=== PATIENT | female | born 1955 | race Caucasian/White ===

== ENCOUNTER 2018-09-16 15:09 | Inpatient (IN) | payer OTHER ==
[2018-09-16] MEDS ORDERED: NACL 0.9% 500 ML 500 ML IV SCH (15:37)
[2018-09-16] MEDS ORDERED: TYLENOL PO PRN (16:21)
[2018-09-16] MEDS ORDERED: SODIUM CHLORIDE FLUSH SYRINGE 10 ML IV PRN (16:21)
[2018-09-16] MEDS ORDERED: DILAUDID IV PRN (16:21)
[2018-09-16] MEDS ORDERED: AMBIEN PO PRN (16:21)
[2018-09-16] MEDS ORDERED: ZOFRAN IV PRN (16:21)
[2018-09-16 17:00] LABS: Basophils % (Auto) 0.7 % (0.0-1.8); Eosinophils % (Auto) 0.4 % (0.0-4.3); Hematocrit 21.8 % (30.3-42.9); Hemoglobin 6.3 gm/dl (10.1-14.3); Lymphocytes # (Auto) 1.7 K/mm3 (1.2-5.4); Lymphocytes % (Auto) 26.2 % (13.4-35.0); Mean Corpuscular HGB Conc 29 % (30-34); Mean Corpuscular Volume 74 fl (79-97); Monocytes # (Auto) 0.4 K/mm3 (0.0-0.8); Monocytes % (Auto) 5.8 % (0.0-7.3); Platelet Count 385 K/mm3 (140-440); Red Blood Count 2.95 M/mm3 (3.65-5.03); Red Cell Distribution Width 20.8 % (13.2-15.2)
[2018-09-16] MEDS ORDERED: D5NS 1,000 ML IV SCH (17:00)
[2018-09-16 17:23] LABS: Alanine Aminotransferase 13 units/L (7-56); Albumin 3.7 g/dL (3.9-5); BUN/Creatinine Ratio 21; Blood Urea Nitrogen 15 mg/dL (7-17); Calcium 9.5 mg/dL (8.4-10.2); Hemolysis Index 0
[2018-09-16] MEDS ORDERED: RANITIDINE HCL 300 MG PO SCH (21:15)
[2018-09-16] MEDS: SODIUM CHLORIDE FLUSH SYRINGE 10 ML IV SCH (21:16)
[2018-09-16] MEDS ORDERED: PEPCID IV SCH (22:00)
[2018-09-16] MEDS: PROTONIX IV SCH (22:24)
[2018-09-16] MEDS: APRESOLINE IV PRN (22:44)
[2018-09-17] MEDS: APRESOLINE IV PRN (04:35)
--- NOTE | 2018-09-17 07:04 | History and Physical Report ---
History of Present Illness Date of examination: 09/16/18 Date of admission: 09/16/18 15:45 Chief complaint: Low H/h--sent from Dr Samuels's office History of present illness: 63 y/o female sent from Dr Sims office for direct admit.Patient was found to have low hemoglobin of 6.2. No Hematemesis or Melena recently. No Menorrhagia Patient has been taking Diclofenac for OA.Easy fatigability and SOB on exertion.Also Lightheaded. Past History Past Medical History: arthritis, hypertension Past Surgical History: No surgical history Social history: no significant social history, lives with family Family history: hypertension Medications and Allergies Allergies Allergy/AdvReac Type Severity Reaction Status Date / Time No Known Allergies Allergy Verified 09/16/18 15:13 Home Medications Medication Instructions Recorded Confirmed Last Taken Type Metoprolol 100 mg PO DAILY 09/16/18 09/16/18 09/15/18 08:00 History Ranitidine HCl 300 mg PO DAILY 09/16/18 09/16/18 09/16/18 17:00 History Active Meds: Active Medications Acetaminophen (Tylenol) 650 mg PO Q4H PRN PRN Reason: Pain MILD(1-3)/Fever >100.5/YAN Hydralazine HCl (Apresoline) 10 mg IV Q4H PRN PRN Reason: Blood Pressure Last Admin: 09/17/18 04:35 Dose: 10 mg Documented by: Hydromorphone HCl (Dilaudid) 0.5 mg IV Q3H PRN PRN Reason: Pain , Severe (7-10) Dextrose/Sodium Chloride (D5ns) 1,000 mls @ 42 mls/hr IV DIRECT [facility] Last Admin: 09/16/18 21:16 Dose: 42 mls/hr Documented by: Ondansetron HCl (Zofran) 4 mg IV Q8H PRN PRN Reason: Nausea And Vomiting Pantoprazole Sodium (Protonix) 40 mg IV BID [facility] Last Admin: 09/16/18 22:24 Dose: Not Given Documented by: Sodium Chloride (Sodium Chloride Flush Syringe 10 Ml) 10 ml IV BID [facility] Last Admin: 09/16/18 21:16 Dose: 10 ml Documented by: Sodium Chloride (Sodium Chloride Flush Syringe 10 Ml) 10 ml IV PRN PRN PRN Reason: LINE FLUSH Zolpidem Tartrate (Ambien) 5 mg PO QHS PRN PRN Reason: Insomnia Review of Systems All systems: negative Constitutional: no weight loss, no weight gain, no fever, no chills Ears, nose, mouth and throat: no ear pain, no ear discharge, no tinnitis, no decreased hearing Breasts: deferred Cardiovascular: lightheadedness, shortness of breath, dyspnea on exertion Respiratory: dyspnea on exertion, no cough, no cough with sputum, no excessive sputum, no hemoptysis, no shortness of breath Gastrointestinal: no abdominal pain, no nausea, no vomiting, no diarrhea Genitourinary Female: no dyspareunia, no dysmenorrhea, no pelvic pain, no flank pain, no menorrhagia, no dysuria, no urinary frequency, no urgency, no stress incontinence, no post void dribbling, no incomplete emptying, no urge incontinence, no mixed incontinence, no difficulty voiding, no hematuria Menstruation: ammenorrhea Rectal: no pain, no bleeding Musculoskeletal: redness of joints, no neck stiffness, no neck pain, no shooting arm pain, no arm numbness/tingling Integumentary: no rash, no pruritis, no redness, no sores, no wounds Neurological: no head injury, no transient paralysis, no paralysis, no weakness, no parathesias Psychiatric: no anxiety, no memory loss, no change in sleep habits, no sleep disturbances Endocrine: no cold intolerance, no heat intolerance, no polyphagia, no excessive thirst Hematologic/Lymphatic: no easy bruising, no easy bleeding Allergic/Immunologic: no urticaria, no allergic rhinitis, no wheezing Exam - Constitutional Vitals: Temp Pulse Resp BP Pulse Ox 98 F 71 17 153/64 100 09/17/18 06:45 09/17/18 06:45 09/17/18 06:45 09/17/18 06:45 09/17/18 06:45 General appearance: Present: no acute distress, well-nourished - EENT Eyes: Present: PERRL ENT: hearing intact, clear oral mucosa - Neck Neck: Present: supple, normal ROM - Respiratory Respiratory effort: normal Respiratory: bilateral: CTA - Cardiovascular Heart rate: 78 Rhythm: regular Heart Sounds: Present: S1 & S2. Absent: rub, click - Extremities Extremities: no ischemia, pulses intact, pulses symmetrical, No edema Peripheral Pulses: within normal limits - Abdominal General gastrointestinal: Present: soft, non-tender, non-distended, normal bowel sounds Female genitourinary: Present: normal - Integumentary Integumentary: Present: clear, warm, dry - Musculoskeletal Musculoskeletal: gait normal, strength equal bilaterally - Psychiatric Psychiatric: appropriate mood/affect, intact judgment & insight - Neurologic Neurologic: CNII-XII intact, moves all extremities Results - Labs CBC & Chem 7: 09/16/18 16:31 09/16/18 16:31 Labs: Laboratory Last Values WBC 6.6 K/mm3 (4.5-11.0) 09/16/18 16:31 RBC 2.95 M/mm3 (3.65-5.03) L 09/16/18 16:31 Hgb 6.3 gm/dl (10.1-14.3) L 09/16/18 16:31 Hct 21.8 % (30.3-42.9) L 09/16/18 16:31 MCV 74 fl (79-97) L 09/16/18 16:31 MCH 22 pg (28-32) L 09/16/18 16:31 MCHC 29 % (30-34) L 09/16/18 16:31 RDW 20.8 % (13.2-15.2) H 09/16/18 16:31 Plt Count 385 K/mm3 (140-440) 09/16/18 16:31 Lymph % (Auto) 26.2 % (13.4-35.0) 09/16/18 16:31 Pine % (Auto) 5.8 % (0.0-7.3) 09/16/18 16:31 Eos % (Auto) 0.4 % (0.0-4.3) 09/16/18 16:31 Baso % (Auto) 0.7 % (0.0-1.8) 09/16/18 16:31 Lymph # 1.7 K/mm3 (1.2-5.4) 09/16/18 16:31 Pine # 0.4 K/mm3 (0.0-0.8) 09/16/18 16:31 Eos # 0.0 K/mm3 (0.0-0.4) 09/16/18 16:31 Baso # 0.0 K/mm3 (0.0-0.1) 09/16/18 16:31 Seg Neutrophils % 66.9 % (40.0-70.0) 09/16/18 16:31 Seg Neutrophils # 4.4 K/mm3 (1.8-7.7) 09/16/18 16:31 Sodium 140 mmol/L (137-145) 09/16/18 16:31 Potassium 4.7 mmol/L (3.6-5.0) 09/16/18 16:31 Chloride 104.2 mmol/L (98-107) 09/16/18 16:31 Carbon Dioxide 24 mmol/L (22-30) 09/16/18 16:31 17 mmol/L 09/16/18 16:31 BUN 15 mg/dL (7-17) 09/16/18 16:31 0.7 mg/dL (0.7-1.2) 09/16/18 16:31 Estimated GFR > 60 ml/min 09/16/18 16:31 21 % 09/16/18 16:31 Glucose 101 mg/dL (65-100) H 09/16/18 16:31 6.0 % (4-6) 09/16/18 16:39 Calcium 9.5 mg/dL (8.4-10.2) 09/16/18 16:31 0.20 mg/dL (0.1-1.2) 09/16/18 16:31 AST 18 units/L (5-40) 09/16/18 16:31 ALT 13 units/L (7-56) 09/16/18 16:31 80 units/L (35-129) 09/16/18 16:31 7.3 g/dL (6.3-8.2) 09/16/18 16:31 3.7 g/dL (3.9-5) L 09/16/18 16:31 1.0 % 09/16/18 16:31 Blood Type O POSITIVE 09/16/18 16:31 Antibody Screen Negative 09/16/18 16:31 Crossmatch See Detail 09/16/18 16:31 Assessment and Plan Advance Directives: Yes (Full code) VTE prophylaxis?: Mechanical Plan of care discussed with patient/family: Yes - Patient Problems (1) Symptomatic anemia Current Visit: Yes Status: Acute Plan to address problem: R/o upper GI bleed sec to NSAIDS patient on Dicofenac for OA (2) HTN (hypertension) Current Visit: Yes Status: Chronic Qualifiers: Hypertension type: essential hypertension Qualified Code(s): I10 - Essential (primary) hypertension Plan to address problem: Cont antihypertensives (3) GERD (gastroesophageal reflux disease) Current Visit: Yes Status: Chronic Qualifiers: Esophagitis presence: with esophagitis Qualified Code(s): K21.0 - Gastro- esophageal reflux disease with esophagitis Plan to address problem: On PPis (4) DVT prophylaxis Current Visit: Yes Status: Acute Plan to address problem: On SCDs and GI prophylaxis
--- NOTE | 2018-09-17 09:49 | Gastroenterology Consultation ---
<BAMBI EL - Last Filed: 09/17/18 10:02> History of Present Illness - Reason for Consult Consult date: 09/17/18 anemia, GI bleed Requesting physician: DENYS MCKEON - History of Present Illness Patient is a 63 y/o female with PMH of arthritis and HTN who was sent to ED for evaluation of low hemoglobin. GI has been consulted for anemia/GI bleed?. This morning patient was resting in bed w/o acute distress with family at bedside who assisted with translating/obtaining history. Patient reports intermittent epigastric pain x ~3 months that is exacerbated with certain foods (spicy, greasy, etc.). No active signs of bleeding such as hematemesis, melena, or hematochezia. Denies fever, wt loss, CP, SOB, N/V, dysphagia, odynophagia, diarr hea, or constipation. No prior hx of anemia or GI bleeding. Had a colonoscopy within the last year while in [place] with negative results per pt/family report. No previous EGD or hx of PUD, but admits to heavy NSAID use at home along with taking Diclofenac for knee pain 2/2 arthritis. States she was placed on a short trial of PPI by PCP for epigastric pain with improvement in pain at that time, but is no longer taking medication. No known Fhx of GI cancer. Past History Past Medical History: arthritis, hypertension Past Surgical History: No surgical history Social history: no significant social history, lives with family Family history: hypertension Medications and Allergies Allergies Allergy/AdvReac Type Severity Reaction Status Date / Time No Known Allergies Allergy Verified 09/16/18 15:13 Home Medications Medication Instructions Recorded Confirmed Last Taken Type Metoprolol 100 mg PO DAILY 09/16/18 09/16/18 09/15/18 08:00 History Pantoprazole [Protonix] 40 mg PO BID #60 tablet 09/17/18 Unknown Rx Sucralfate [Carafate] 1 gm PO ACHS 30 Days oral.liqd 09/17/18 Unknown Rx Active Meds: Active Medications Acetaminophen (Tylenol) 650 mg PO Q4H PRN PRN Reason: Pain MILD(1-3)/Fever >100.5/YAN Hydralazine HCl (Apresoline) 10 mg IV Q4H PRN PRN Reason: Blood Pressure Last Admin: 09/17/18 04:35 Dose: 10 mg Documented by: Hydromorphone HCl (Dilaudid) 0.5 mg IV Q3H PRN PRN Reason: Pain , Severe (7-10) Last Admin: 09/17/18 07:56 Dose: 0.5 mg Documented by: Dextrose/Sodium Chloride (D5ns) 1,000 mls @ 42 mls/hr IV DIRECT [facility] Last Admin: 09/16/18 21:16 Dose: 42 mls/hr Documented by: Ondansetron HCl (Zofran) 4 mg IV Q8H PRN PRN Reason: Nausea And Vomiting Pantoprazole Sodium (Protonix) 40 mg IV BID [facility] Last Admin: 09/16/18 22:24 Dose: Not Given Documented by: Sodium Chloride (Sodium Chloride Flush Syringe 10 Ml) 10 ml IV BID [facility] Last Admin: 09/16/18 21:16 Dose: 10 ml Documented by: Sodium Chloride (Sodium Chloride Flush Syringe 10 Ml) 10 ml IV PRN PRN PRN Reason: LINE FLUSH Zolpidem Tartrate (Ambien) 5 mg PO QHS PRN PRN Reason: Insomnia medications reviewed/updated as required Review of Systems - Review of Systems All systems: negative Gastrointestinal: abdominal pain (epigastric), other (anemia) Exam - Constitutional Vital Signs: Temp Pulse Resp BP Pulse Ox 98.3 F 6 L 18 128/55 96 09/17/18 09:07 09/17/18 09:07 09/17/18 09:07 09/17/18 09:07 09/17/18 09:07 General appearance: no acute distress - EENT Eyes: PERRL, EOM intact ENT: hearing intact - Respiratory Respiratory effort: normal Respiratory: bilateral: CTA - Cardiovascular Rhythm: regular - Gastrointestinal General gastrointestinal: Present: soft, tender (slight TTP in epigastric area), non-distended, normal bowel sounds Rectal Exam: other (no stool in rectal vault; no signs of blood- show design supervisor present during exam (Salome RN)) - Neurologic Neurological: alert and oriented x3 - Labs CBC & Chem 7: 09/16/18 16:31 09/16/18 16:31 Lab Results: Laboratory Results - last 24 hr 09/16/18 09/16/18 09/16/18 16:31 16:31 16:31 WBC 6.6 RBC 2.95 L Hgb 6.3 L Hct 21.8 L MCV 74 L MCH 22 L MCHC 29 L RDW 20.8 H Plt Count 385 Lymph % (Auto) 26.2 Blount % (Auto) 5.8 Eos % (Auto) 0.4 Baso % (Auto) 0.7 Lymph # 1.7 Blount # 0.4 Eos # 0.0 Baso # 0.0 Seg Neutrophils % 66.9 Seg Neutrophils # 4.4 Sodium 140 Potassium 4.7 Chloride 104.2 Carbon Dioxide 24 Anion Gap 17 BUN 15 Creatinine 0.7 Estimated GFR > 60 BUN/Creatinine Ratio 21 Glucose 101 H Hemoglobin A1c Calcium 9.5 Total Bilirubin 0.20 AST 18 ALT 13 Alkaline Phosphatase 80 Total Protein 7.3 Albumin 3.7 L Albumin/Globulin Ratio 1.0 Blood Type O POSITIVE Antibody Screen Negative Crossmatch See Detail 09/16/18 16:39 WBC RBC Hgb Hct MCV MCH MCHC RDW Plt Count Lymph % (Auto) Blount % (Auto) Eos % (Auto) Baso % (Auto) Lymph # Blount # Eos # Baso # Seg Neutrophils % Seg Neutrophils # Sodium Potassium Chloride Carbon Dioxide Anion Gap BUN Creatinine Estimated GFR BUN/Creatinine Ratio Glucose Hemoglobin A1c 6.0 Calcium Total Bilirubin AST ALT Alkaline Phosphatase Total Protein Albumin Albumin/Globulin Ratio Blood Type Antibody Screen Crossmatch Assessment and Plan 1.GI bleed? 2.anemia 3.epigastric pain -H/H 6.3/21.8- 2 units of PRBCs transfused but no repeat H/H at this time -continue to monitor H/H and transfuse as needed -no active signs of bleeding -colonoscopy within the last year with negative results per pt/family while in [place] (records unavailable) -patient reports epigastric pain x ~3 months slightly improved trial of PPI but no longer taking medication. No active signs of bleeding but admits to heavy NSAID use along with taking Diclofenac for arthritis pain. -etiology-possible ulcer vs other -will schedule for EGD today for further evaluation -Keen NPO -continue PPI BID and supportive care -will follow <LISETH ZAVALA - Last Filed: 09/17/18 23:15> Exam - Constitutional Vital Signs: Temp Pulse Resp BP Pulse Ox 98.8 F 72 16 144/68 96 09/17/18 13:37 09/17/18 13:37 09/17/18 13:37 09/17/18 13:37 09/17/18 13:37 - Labs CBC & Chem 7: 09/17/18 13:40 09/16/18 16:31 Lab Results: Laboratory Results - last 24 hr 09/16/18 09/17/18 09/17/18 16:31 13:40 13:40 WBC 7.2 RBC 4.08 Hgb 9.5 L D Hct 30.7 D MCV 75 L MCH 23 L MCHC 31 RDW 21.2 H Plt Count 320 Lymph % (Auto) 34.2 Blount % (Auto) 7.0 Eos % (Auto) 0.6 Baso % (Auto) 0.7 Lymph # 2.4 Blount # 0.5 Eos # 0.0 Baso # 0.1 Seg Neutrophils % 57.5 Seg Neutrophils # 4.1 Iron 28 L TIBC 438 Ferritin Vitamin B12 Folate Blood Type O POSITIVE Antibody Screen Negative Crossmatch See Detail 09/17/18 09/17/18 09/17/18 13:40 13:40 13:40 WBC RBC Hgb Hct MCV MCH MCHC RDW Plt Count Lymph % (Auto) Blount % (Auto) Eos % (Auto) Baso % (Auto) Lymph # Blount # Eos # Baso # Seg Neutrophils % Seg Neutrophils # Iron TIBC Ferritin 8.7 L Vitamin B12 1662 H Folate 10.93 Blood Type Antibody Screen Crossmatch Assessment and Plan Patient seen and examined. I agree with the advanced practitioner's assessment and plan, with the following additions: Given abd pain and reported negative recent colonoscopy, UGI source most liekly, therefore will pursue EGD given severe anemia. Differential diagnosis includes PUD, AVM, masses, etc. Cont PPI for now, with final recs based upon EGD results.
[2018-09-17] MEDS: SODIUM CHLORIDE FLUSH SYRINGE 10 ML IV SCH (10:54)
[2018-09-17] MEDS: PROTONIX IV SCH (10:54)
[2018-09-17] MEDS ORDERED: DIPRIVAN 10 MG/ML IV ONE ×2 (10:59)
[2018-09-17] MEDS ORDERED: NACL 0.9% 1000 ML 1,000 ML IV SCH (11:00)
[2018-09-17] MEDS ORDERED: XYLOCAINE MPF 2% ONE (11:00)
[2018-09-17] MEDS ORDERED: VERSED ONE (11:02)
[2018-09-17] MEDS ORDERED: SUBLIMAZE ONE (11:02)
--- NOTE | 2018-09-17 11:18 | Operative Report ---
Operative Report Operative Report: DOS 09/17/18 SURGEON: Dillon Parekh MD EGD with biopsy REPORT PREOPERATIVE DIAGNOSIS and POSTOPERATIVE DIAGNOSIS: Anemia ESTIMATED BLOOD LOSS: minimal DESCRIPTION OF PROCEDURE: A high-resolution EGD scope was passed through the oropharynx, esophagus, stomach, and second portion of duodenum. The scope was c arefully withdrawn. Retroflexion was performed in the stomach. At the end of the procedure, the scope was cleaned using normal technique. Vital signs monitored continuously throughout. SEDATION: Provided by Anesthesiology Services. COMPLICATIONS: None. FINDINGS: * No gross lesions in the entire duodenum * No gross lesions in the entire stomach * GE junction at 35 cm from the incisors * Severe esophagitis in the distal 3 cm of the esophagus with a large clean- based esophageal ulcer approximately 1 cm long by 6 mm wide. Multiple biopsies obtained from the ulcer base as well as edge as well as from the area of the severe esophagitis in the distal esophagus * Manger of the exam was normal RECOMMENDATIONS: * Follow-up biopsy results, start patient on a clear liquid diet, trend hemoglobin today * Given the patient reports a recent colonoscopy, and no overt bleeding, it is unlikely that patient will require an inpatient colonoscopy. As long as hemoglobin rises appropriately and remained stable and there is no overt bleeding, she could likely be discharged on twice daily proton pump inhibitor along with 4 times daily Carafate slurry and follow-up with us in the office in 1-2 weeks
[2018-09-17] MEDS ORDERED: CARAFATE PO SCH (11:30)
--- NOTE | 2018-09-17 14:10 | Anesthesia Consultation ---
Anesthesia Consult and Med Hx Date of service: 09/17/18 - Airway Anesthetic Teeth Evaluation: Good ROM Head & Neck: Adequate Mental/Hyoid Distance: Adequate Mallampati Class: Class I Intubation Access Assessment: Good - Pulmonary Exam CTA: Yes - Cardiac Exam Cardiac Exam: RRR - Pre-Operative Health Status ASA Pre-Surgery Classification: ASA2 Proposed Anesthetic Plan: MAC - Pulmonary Hx Asthma: No COPD: No Hx Pneumonia: No - Cardiovascular System Hx Hypertension: Yes - Endocrine Hx End Stage Renal Disease: No
--- NOTE | 2018-09-17 14:11 | Anesthesia Day of Surgery ---
Anesthesia Day of Surgery - Day of Surgery Patient Examined: Yes Patient H&P Reviewed: Yes Patient is NPO: Yes
[2018-09-17 14:25] VITALS: BP 144/68
[2018-09-17 14:42] LABS: Iron 28 ug/dL (37-170); Total Iron Binding Capacity 438 mcg/dL (250-450)
[2018-09-17 14:44] LABS: Basophils # (Auto) 0.1 K/mm3 (0.0-0.1); Basophils % (Auto) 0.7 % (0.0-1.8); Eosinophils % (Auto) 0.6 % (0.0-4.3); Hematocrit 30.7 % (30.3-42.9); Hemoglobin 9.5 gm/dl (10.1-14.3); Lymphocytes # (Auto) 2.4 K/mm3 (1.2-5.4); Lymphocytes % (Auto) 34.2 % (13.4-35.0); Mean Corpuscular HGB Conc 31 % (30-34); Mean Corpuscular Volume 75 fl (79-97); Monocytes # (Auto) 0.5 K/mm3 (0.0-0.8); Platelet Count 320 K/mm3 (140-440); Red Blood Count 4.08 M/mm3 (3.65-5.03)
[2018-09-17 14:48] LABS: Red Cell Distribution Width 21.2 % (13.2-15.2)
--- NOTE | 2018-09-17 15:28 | Discharge Summary ---
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 Patient was found to have low hemoglobin of 6.2. She denied any blood in stool. She denies any vomiting or hematemesis. She was admitted and labs show hemoglobin 6.3. She was transfused 2 Units PRBC bringing hemoglobin to 9.5. GI Physician and Oncology were consulted. EGD was done on 09/17/18 revealed severe esophagitis and esophageal ulcer. She was put on Protonix and discharged home to follow as outpatient. Disposition: - TO HOME OR SELFCARE - Discharge Diagnoses (1) Esophagitis, acute Status: Acute (2) Esophageal ulcer Status: Acute (3) HTN (hypertension) Status: Chronic Qualifiers: Hypertension type: essential hypertension Qualified Code(s): I10 - Essential (primary) hypertension (4) Hypertension Status: Acute (5) Anemia due to chronic blood loss Status: Acute Core Measure Documentation - Palliative Care Palliative Care/ Comfort Measures: Not Applicable - Core Measures Any of the following diagnoses?: none Exam - Constitutional Vitals: Temp Pulse Resp BP Pulse Ox 98.8 F 72 16 144/68 96 09/17/18 13:37 09/17/18 13:37 09/17/18 13:37 09/17/18 13:37 09/17/18 13:37 Plan Activity: no restrictions Diet: other (GI soft diet, low salt, low fat) Additional Instructions: 1.Follow up with PCP in 1 week. 2.Follow up with Dr. Samuels in 1 week. 3.Follow up with ROYAL Chavira in 1 week Follow up with: PRIMARY CARE, [Primary Care Provider] - 7 Days Forms: Work/School Excuse Out Patient Prescriptions: Sucralfate [Carafate] 1 gm PO ACHS 30 Days oral.liqd Pantoprazole [Protonix] 40 mg PO BID #60 tablet
--- NOTE | 2018-09-17 22:46 | Event Note ---
Date: 09/17/18 [id number]
--- NOTE | 2018-09-18 20:01 | Consultation ---
REFERRED BY: Dr. Meadows. REASON FOR CONSULTATION: Microcytic anemia. HISTORY OF PRESENT ILLNESS: I had seen the patient yesterday in the clinic. She was referred to me by Dr. Beckett for anemia. She was found to have severe microcytic anemia less than 7 with history of epigastric pain, so she was sent to the hospital as direct admission for transfusion and GI evaluation. She received transfusion support. GI has been consulted. I have been asked to evaluate the patient at this time. No headache, no visual disturbances, no eye discharge, no chest pain, no palpitations. Has history of abdominal pain for the last 3 months. She was on pain medicines for arthritis. The patient was prescribed PPI by primary care. No vomiting, no diarrhea, no dysuria, no hematemesis, no hematuria, no melena. No seizure or syncope or loss of consciousness. PAST MEDICAL HISTORY: Arthritis, hypertension. PAST SURGICAL HISTORY: None. SOCIAL HISTORY: Works at [employer], lives with daughter. ALLERGIES: None. HOME MEDICATIONS: Metoprolol, ranitidine and nonsteroidal. PHYSICAL EXAMINATION: VITAL SIGNS: Temperature 98.8, pulse 72, respirations 16, BP 144/68. HEENT: Pallor present, no icterus. NECK: No neck lymph nodes. HEART: S1, S2. LUNGS: Clear to auscultation. ABDOMEN: Soft. EXTREMITIES: No calf tenderness. NEUROLOGIC: Alert, awake, oriented. LABORATORY DATA: At admission, hemoglobin was 6.3, white cells 6.6, MCV 74, platelet 385. After transfusion, hemoglobin 9.5. Serum iron is low, ferritin is low. B12 and folate is normal. ASSESSMENT: 1. Macrocytic anemia secondary to iron deficiency. 2. History of epigastric pain. Gastrointestinal team is seeing the patient. 3. History of hypertension. 4. History of arthritis, for which she was nonsteroidal for some time. I discussed with the patient regarding outpatient followup as an option versus inpatient evaluation. They are worried about the financial implication. I would see the patient in the clinic setting once discharged. JOB# [id number] NM/NTS
== END 2018-09-17 17:57 | disposition home or self-care (01) | DRG 812 ==
LOC: UNDOADMIN 15:09 → 3A 15:09
PROVIDERS: ADMIT Internal Medicine; ATTEND Internal Medicine
PROC: 0DB58ZX Excision of Esophagus, Via Natural or Artificial Opening Endoscopic, Diagnostic (ICD-10-PCS; principal; 2018-09-17)
PROC: 30233N1 Transfusion of Nonautologous Red Blood Cells into Peripheral Vein, Percutaneous Approach (ICD-10-PCS; 2018-09-17)
DX: D50.0 Iron deficiency anemia secondary to blood loss (chronic) (principal); K22.10 Ulcer of esophagus without bleeding; K21.0 Gastro-esophageal reflux disease with esophagitis; I10 Essential (primary) hypertension; Z82.49 Family history of ischemic heart disease and other diseases of the circulatory system
CPT/HCPCS: 36415; 80053; 82607; 82728; 82747; 83036; 83550; 85014; 85018; 85025; 86850; 86900; 86901; 86920; 88305; 88312; 88341; 88342; G0378; J0360; J1170; J2250; J2704; J3010; J7040; J7042; P9016

== ENCOUNTER 2019-02-09 07:36 | Day surgery (SDC) | payer OTHER ==
[2019-02-09] MEDS ORDERED: SODIUM CHLORIDE 0.9% 1000 ML 1,000 ML ONE (07:44)
[2019-02-09] MEDS ORDERED: SODIUM CHLORIDE 0.9% 1000 ML 1,000 ML IV SCH (08:00)
[2019-02-09] MEDS ORDERED: WATER FOR IRRIG STERILE 250 ML BOTTLE IR ONE (08:04)
[2019-02-09] MEDS ORDERED: PROPOFOL 200 MG/20 ML VIAL IV ONE (08:16)
--- NOTE | 2019-02-09 08:34 | Operative Report ---
Operative Report Operative Report: DOS: 02/09/19 SURGEON: Dillon Parekh MD EGD with biopsy REPORT PREOPERATIVE DIAGNOSIS and POSTOPERATIVE DIAGNOSIS: iron def anemia due to chronic GI blood loss; esophageal ulcer f/u ESTIMATED BLOOD LOSS: minimal DESCRIPTION OF PROCEDURE: A high-resolution EGD scope was passed through the oropharynx, esophagus, stomach, and second portion of duodenum. The scope was carefully withdrawn. Retroflexion was performed in the stomach. At the end of the procedure, the scope was cleaned using normal technique. Vital signs monitored continuously throughout. SEDATION: Provided by Anesthesiology Services. COMPLICATIONS: None. FINDINGS: * Normal 2nd portion of the duodenum * Mild duodenitis of the duodenal bulb with erythema * Moderate gastritis of the gastric antrum and body with erosions erythema and edema. Biopsies were taken to rule out H. Pylori infection. A total of 5 biopsies were taken, 2 from the antrum, 1 from the incisura, 2 from the body. * 4 cm hiatal hernia * GE junction located 31 cm from the incisors * Moderate LA grade C reflux esophagitis in the distal 1 cm of the esophagus. B iopsies obtained random four-quadrant to rule out Ott's esophagus (Would be C0M1 using [place] classification) * Remainder of exam was normal RECOMMENDATIONS: * Continue to avoid all NSAIDs * Follow-up pathology results * Based upon the endoscopic appearance despite being on long-term PPI, I would not recommend that the patient stop PPI rather continue once daily PPI (unless biopsies return as H. pylori positive, in which case could consider trying to stop the PPI once H. pylori has been eradicated) * Patient may follow up with me in the office as needed
[2019-02-09 09:15] VITALS: BP 138/69
--- NOTE | 2019-02-09 10:30 | Post Anesthesia Evaluation ---
- Post Anesthesia Evaluation Patient Participated: Yes Airway Patent: Yes Stable Respiratory Function: Yes Nausea/Vomiting: No Temp > 96.8F: Yes Pain Manageable: Yes Adequeate Hydration: Yes Anesthesia Complications: No
--- NOTE | 2019-02-09 10:32 | Anesthesia Consultation ---
Anesthesia Consult and Med Hx Date of service: 02/09/19 - Airway Anesthetic Teeth Evaluation: Good ROM Head & Neck: Adequate Mental/Hyoid Distance: Adequate Mallampati Class: Class III Intubation Access Assessment: Possibly Difficult - Pulmonary Exam CTA: Yes - Cardiac Exam Cardiac Exam: RRR - Pre-Operative Health Status ASA Pre-Surgery Classification: ASA2 Proposed Anesthetic Plan: MAC - Pulmonary Hx Smoking: No Hx Respiratory Symptoms: No - Cardiovascular System Hx Hypertension: Yes Hx Heart Attack/AMI: No - Central Nervous System CVA: No - Gastrointestinal Hx Ulcer: Yes Hx Gastroesophageal Reflux Disease: Yes - Endocrine Hx Renal Disease: No Hx Cirrhosis: No Hx Liver Disease: No Hx Insulin Dependent Diabetes: No Hx Non-Insulin Dependent Diabetes: No Hx Thyroid Disease: No - Hematic Hx Anemia: Yes - Other Systems Hx Obesity: Yes
--- NOTE | 2019-02-09 10:32 | Anesthesia Day of Surgery ---
Anesthesia Day of Surgery - Day of Surgery Patient Examined: Yes Patient H&P Reviewed: Yes Patient is NPO: Yes
== END 2019-02-09 07:37 | disposition home or self-care (01) ==
LOC: GIO 07:36
PROVIDERS: ATTEND Student in an Organized Health Care Education/Training Program
DX: D50.0 Iron deficiency anemia secondary to blood loss (chronic) (principal); K29.80 Duodenitis without bleeding; K29.70 Gastritis, unspecified, without bleeding; K44.9 Diaphragmatic hernia without obstruction or gangrene; I10 Essential (primary) hypertension; K21.0 Gastro-esophageal reflux disease with esophagitis; K22.10 Ulcer of esophagus without bleeding; E66.9 Obesity, unspecified; Z68.32 Body mass index [BMI] 32.0-32.9, adult; Z79.899 Other long term (current) drug therapy; Z98.890 Other specified postprocedural states
CPT/HCPCS: 43239; 88305; 88312; 88342; J2704; J7030